=== PATIENT | female | born 1930 | race Two or more races ===

== ENCOUNTER 2017-11-11 17:06 | Emergency (ER) | payer OTHER ==
[~2017-11-11] VITALS: Ht 147.3 cm; Wt 67.0 kg
[2017-11-11] MEDS ORDERED: PERCOCET 5/31 TABLET PO (22:09)
[2017-11-11 22:16] VITALS: BP 147/64
== END 2017-11-11 22:28 | disposition home or self-care (01) ==
LOC: EME 17:06
PROC: 2W3CX1Z Immobilization of Right Lower Arm using Splint (ICD-10-PCS; principal; 2017-11-11)
DX: S62.101A Fracture of unspecified carpal bone, right wrist, initial encounter for closed fracture (principal); M25.551 Pain in right hip; R10.31 Right lower quadrant pain; W18.30XA Fall on same level, unspecified, initial encounter; Z88.0 Allergy status to penicillin
CPT/HCPCS: 99281; 99284